=== PATIENT | female | born 1970 | race Caucasian/White ===

== ENCOUNTER → 2024-05-25 11:30 | Outpatient (REF) | payer OTHER, SELFPAY | LOC: WDC 11:30 | PROVIDERS: ATTENDING PHYSICIAN Obstetrics & Gynecology; FAMILY PHYSICIAN Family Medicine | DX: Z12.31 Encounter for screening mammogram for malignant neoplasm of breast (principal) | CPT/HCPCS: 77063; 77067 ==

== ENCOUNTER 2024-08-22 07:35 | Emergency (ER) | payer OTHER, SELFPAY ==
[2024-08-22] VITALS (26 sets, daily range): BP systolic 108–168; BP diastolic 61–114; BMI 40.9
--- NOTE | 2024-08-22 07:53 | ED.GENMED ---
History of Present Illness
<Zee Chaparro, NEW PATIENT ESCORT - Last Filed: 08/22/24 09:41>
General
Chief Complaint: Heart Rate Problem
Source: patient
Exam Limitations: none
Time Seen by Provider: 08/22/24 07:53
Nursing documentation reviewed up to this point in time: agreed with
History of Present Illness
History of Present Illness:
53-year-old female with history of atrial fibrillation 3 years ago, no longer on Eliquis, takes Baby asa daily, Losartan and Amlodipine 5 mg. Went to bed 11 p.m. feeling fine, woke at 6:30 this a.m. feeling palpitations. Denies chest pain, SOB.
Past History
<Zee Chaparro, NEW PATIENT ESCORT - Last Filed: 08/22/24 09:41>
Past History
ED Past Medical History: Arrthythmia (afib), HTN and Hypercholesterolemia
ED Past Surgical History: None
Social History
Tobacco: Non-smoker
Alcohol: Occasional
Personal:
Living: with family
Review of Systems
<Zee Chaparro, NEW PATIENT ESCORT - Last Filed: 08/22/24 09:41>
Review of Systems
Allergies reviewed?: Yes
All Other Systems: ROS reviewed and negative except as documented in HPI and ROS
Constitutional: Denies fever or fatigue
Respiratory: Denies trouble breathing
Cardiac: Reports palpitations; Denies chest pain or diaphoresis
ABD/GI: Reports abdominal pain, nausea and vomiting
Skin: Reports no symptoms
Neurological: Reports no symptoms
Phy Exam
<Zee Chaparro, NEW PATIENT ESCORT - Last Filed: 08/22/24 09:41>
Physical Exam
Physical Exam:
GENERAL: No acute distress. A&Ox3.
CONSTITUTIONAL: Afebrile.
EYES: clear, conjunctivae normal
ENMT: moist mucus membranes
RESPIRATORY: Regular respirations, nonlabored, lungs clear.
CARDIOVASCULAR: Irregular rhythm, rate 120's-160. No murmurs, no rubs.
GI: Soft, nontender, normal BS
MUSCULOSKELETAL: Moves with ease. Well perfused.
SKIN: Warm, dry, pink
PSYCH: Normal mood and affect. Well kept, interactive and appropriate
NEUROLOGIC: Awake, alert and oriented. No focal neurological deficits
Course
<Zee Chaparro, NEW PATIENT ESCORT - Last Filed: 08/22/24 09:41>
Orders/Labs/Results
Orders:
Orders
08/22/24 07:35
Electrocardiogram (*1) Urgent
Reason for Study: Atrial Fibrillation
08/22/24 07:36
EKG- Treatment ONCE
08/22/24 08:12
Complete Blood Count/With Diff Urgent
Comprehensive Metabolic Panel Urgent
Troponin I Urgent
08/22/24 08:22
Diltiazem 125 mg/125 ml Nss [Cardizem] 125 mg in 125 ml IV NOW
Initial dose in mg/hr, then titrate:: 5
Titrate to keep:: Heart rate 80-100 bpm
Titrate by mg/hr:: 5 mg/hr
Frequency of titrations (minutes):: 15
Maximum dose in mg/hr:: 15
Diltiazem HCl [Cardizem] 10 mg IV NOW STA
08/22/24 08:42
Ipratropium/Albuterol Sulfate [Duoneb] 3 ml INH R NOW STA
08/22/24 09:42
Propofol [Diprivan] 20 ml .ROUTE .STK-MED
08/22/24 10:12
EKG [Electrocardiogram (*1)] Urgent
Reason for Study: Other
Other Reason for Exam: s/p cardioversion
EKG- Treatment ONCE
Abnormal Lab Results
08/22/24
08:12
MCH 31.1 H pg
(27.0-31.0)
Absolute Monos (auto) 0.7 H 10^3/uL
(0.1-0.6)
Glucose 115 H mg/dl
(70-99)
ALT 38 H U/L
(0-35)
08/22/24 08:12
08/22/24 08:12
Vital Signs
Initial and Last Documented VS:
Initial Vital Signs
Temp Pulse Resp BP Pulse Ox
36.9 C 141 18 168/114 99
08/22/24 07:43 08/22/24 07:43 08/22/24 07:43 08/22/24 07:43 08/22/24 07:43
Last Documented Vital Signs
Temp Pulse Resp BP Pulse Ox
36.9 C 78 12 112/74 99
08/22/24 10:45 08/22/24 12:00 08/22/24 12:00 08/22/24 12:00 08/22/24 12:00
<Flo Eagle, DO - Last Filed: 08/22/24 12:41>
Orders/Labs/Results
Orders:
Orders
08/22/24 07:35
Electrocardiogram (*1) Urgent
Reason for Study: Atrial Fibrillation
08/22/24 07:36
EKG- Treatment ONCE
08/22/24 08:12
Complete Blood Count/With Diff Urgent
Comprehensive Metabolic Panel Urgent
Troponin I Urgent
08/22/24 08:22
Diltiazem 125 mg/125 ml Nss [Cardizem] 125 mg in 125 ml IV NOW
Initial dose in mg/hr, then titrate:: 5
Titrate to keep:: Heart rate 80-100 bpm
Titrate by mg/hr:: 5 mg/hr
Frequency of titrations (minutes):: 15
Maximum dose in mg/hr:: 15
Diltiazem HCl [Cardizem] 10 mg IV NOW STA
08/22/24 08:42
Ipratropium/Albuterol Sulfate [Duoneb] 3 ml INH R NOW STA
08/22/24 09:42
Propofol [Diprivan] 20 ml .ROUTE .STK-MED
08/22/24 10:12
EKG [Electrocardiogram (*1)] Urgent
Reason for Study: Other
Other Reason for Exam: s/p cardioversion
EKG- Treatment ONCE
Abnormal Lab Results
08/22/24
08:12
MCH 31.1 H pg
(27.0-31.0)
Absolute Monos (auto) 0.7 H 10^3/uL
(0.1-0.6)
Glucose 115 H mg/dl
(70-99)
ALT 38 H U/L
(0-35)
08/22/24 08:12
08/22/24 08:12
Vital Signs
Initial and Last Documented VS:
Initial Vital Signs
Temp Pulse Resp BP Pulse Ox
36.9 C 141 18 168/114 99
08/22/24 07:43 08/22/24 07:43 08/22/24 07:43 08/22/24 07:43 08/22/24 07:43
Last Documented Vital Signs
Temp Pulse Resp BP Pulse Ox
36.9 C 78 12 112/74 99
08/22/24 10:45 08/22/24 12:00 08/22/24 12:00 08/22/24 12:00 08/22/24 12:00
Procedures
<Flo Eagle, DO - Last Filed: 08/22/24 12:41>
Cardioversion
Indication:: Afib
Performed by:: [place], Dr. Eagle
Synchronized?: Yes
Energy Used: 200 joules
Number of attempts: 1
Successful?: Yes
Complications: None
ASA Risk Score: Class II
Any reaction or bad outcome to prior sedation/anesthesia?: No history of a reaction
Sedation level to be attained: moderate
Chart and allergies reviewed: Yes
Patient reassessed prior to sedation: Yes
Time out completed at (validating right patient & procedure): 10:01
History of difficult intubation: No
Airway free of obstruction: Yes
Patient has a gag reflex: Yes
Patient is able to open mouth: Yes
Patient has no dentures: Yes
Patient has no loose teeth: Yes
Medication administered by Provider during Moderate Sedation: IV Propofol (mg)
Total dose administered: 100
Time drug administered: 10:01
Start Time: 10:01
Stop Time: 10:12
<Zee Chaparro, NEW PATIENT ESCORT - Last Filed: 08/22/24 09:41>
MDM/Problems Addressed
MDM/Problems Addressed:
53-year-old female with history of atrial fibrillation 3 years ago, no longer on Eliquis, takes Baby asa daily, Losartan and Amlodipine 5 mg. Went to bed 11 p.m. feeling fine, woke at 6:30 this a.m. feeling palpitations. Denies chest pain, SOB.
Afebrile, NAD HR 120'2-160's on monitor
EKG: Afib w RVR
Dr. Eagle in to evaluate
Cardizem and drip started
Consulted Route Process Administrator Dr. Eaton who recommends cardioversion
CBC unremarkable
CMP unremarkable
Troponin WNL
9:40 a.m.
On Cardizem drip HR 120's-130's afib will cardiovert
Dr. Eagle will assume care from this point.
<Zee Chaparro, NEW PATIENT ESCORT - Last Filed: 08/22/24 09:41>
*EKG
EKG Intrepretation Date: 08/22/24
Interpretation: abnormal
Heart Rate: 142
Rate: tachycardiac
Rhythm: a-fib
[place]: normal axis
QRS Pattern: normal QRS
Ischemia: no ischemia
<Flo Eagle DO - Last Filed: 08/22/24 12:41>
*Critical Care Note
Total Time (30-74mins, 75-104mins- exclusive of procedures): 40min
comment:
The patient had heart rates in the 150s upon arrival. She was emergently placed on Cardizem bolus and drip. There was only minimal improvement of heart rate. Her vital signs were continuously monitored. Decision was later made to electrically
cardiovert.
<Flo Eagle DO - Last Filed: 08/22/24 12:41>
Update Note
Update Note:
Called [phone] for prior auth - accepted
ED Attending Note
<Zee Chaparro, NEW PATIENT ESCORT - Last Filed: 08/22/24 09:41>
-
Portions of this chart may have been created with voice recognition software.� Occasional wrong word or��sound alike� substitutions may have occurred due to the inherent limitations of voice recognition software.
<Flo Eagle DO - Last Filed: 08/22/24 12:41>
ED Attending Note
Patient seen and examined by attending physician: Yes
I performed the substantive portion of visit, reviewed & personally made and approve the management plan that is documented in note by myself or OPAL.: Yes
ED Attending Note:
I evaluated the patient at bedside. The patient had abrupt onset palpitations this morning. She has not had palpitations like this over the last few days. She had a similar episode a few years ago and was cardioverted through the Emergency
Department and had briefly been on Eliquis. She is no longer on Eliquis.
Discharge Plan
Departure
Patient Disposition: Home (Routine Discharge)
Date of Disposition: 08/22/24
Time of Disposition: 10:17
Patient with high blood pressure during this ER visit?: Yes
Discharge Problem:
Atrial fibrillation with rapid ventricular response
Instructions: Atrial Fibrillation (DC)
Prescriptions:
New
Eliquis 5 mg tablet
5 mg PO BID Qty: 60 0RF
No Action
apixaban [Eliquis] 5 MG tablet
5 mg PO BID Qty: 30 0RF
Referrals:
Jarvis Fitzpatrick MD [Family Provider] -
Activity Restrictions/Additional Instructions:
I notified Dr. Eaton, Dr. Roberts's partner. Please follow-up with your office. She recommends that we just have you resume the Eliquis. I sent a prescription to your pharmacy for this. Return here if worse or other concerns. Do not drive
today or do any other dangerous activities or make any important decisions as you did receive propofol IV.
Interventions
Interventions:
*Risk Screen - Suicide Last Done: 08/22/24 07:43
*General Assessment Last Done: 08/22/24 07:43
*Neglect/Abuse Screening Last Done: 08/22/24 07:43
ED- Fall Risk Assessment Last Done: 08/22/24 07:58
*ED COVID-19 Vaccine History Last Done: 08/22/24 07:58
ED- Cardiac Assessment Last Done: 08/22/24 07:58
ED- Pulmonary Assessment Last Done: 08/22/24 07:58
Discharge Date and Time
Print Language: GERMAN
[2024-08-22 08:23] LABS: % Basophils 1.2 % (0-2); % Eosinophils 2.6 % (0-6); % Immature Granulocytes 0.4 % (0-0.5); % Lymphocytes 34.6 % (20.5-51.1); % Monocytes 8.8 % (1.7-9.3); % Neutrophils 52.4 % (42.2-75.2); Absolute Basophils 0.1 10^3/uL (0-0.2); Absolute Eosinophils 0.2 10^3/uL (0-0.7); Absolute Lymphocytes 2.6 10^3/uL (1.2-3.4); Absolute Monocytes 0.7 10^3/uL (0.1-0.6); Hematocrit 46.2 % (37.0-47.0); Hemoglobin 15.7 g/dL (12.0-16.0); Mean Corpuscular Hgb 31.1 pg (27.0-31.0); Mean Corpuscular Volume 91.5 fL (81.0-99.0); Mean Platelet Volume 9.8 fL (7.4-10.4); Nucleated Red Blood Cells % 0 %; Platelet Count 310 10^3/uL (130-400); Red Blood Cell Count 5.05 10^6/uL (4.20-5.40); Red Cell Dist. Width 13.4 % (11.5-14.5); White Blood Cell Count 7.6 10^3/uL (4.8-10.8)
[2024-08-22] MEDS: CARDIZEM 10 MG IV (08:31)
[2024-08-22] MEDS: CARDIZEM 125 IV (08:31)
[2024-08-22 08:33] LABS: ALT (SGPT) 38 U/L (0-35); AST (SGOT) 30 U/L (14-36); Albumin 4.5 g/dl (3.5-5.0); Alkaline Phosphatase 80 U/L (38-126); Blood Urea Nitrogen 13 mg/dl (7-17); Calcium 9.4 mg/dl (8.4-10.2); Carbon Dioxide 26 mmol/L (22-30); Chloride 105 mmol/L (98-107); Estimated Creatinine Clearance 91 ml/min; Glucose 115 mg/dl (70-99); Sodium 140 mmol/L (135-145); Total Bilirubin 0.6 mg/dl (0.2-1.3); Total Protein 7.2 g/dl (6.3-8.2); eGFR > 60.00
[2024-08-22 08:44] LABS: Troponin I < 0.012 ng/ml
[2024-08-22 09:15] LABS: Potassium 4.2 mmol/L (3.5-5.1)
--- NOTE | 2024-08-22 10:10 | EDRN ---
Patient received total of Diprivan 100mg IV by . Patient cardioverted with 200 J into sinus tach.
== END 2024-08-22 12:50 | disposition home or self-care (01) ==
LOC: EMR 07:35
PROVIDERS: Registered Nurse; EMERGENCY PHYSICIAN Emergency Medicine; FAMILY PHYSICIAN Family Medicine
DX: I48.91 Unspecified atrial fibrillation (principal); I10 Essential (primary) hypertension; E78.00 Pure hypercholesterolemia, unspecified; Z79.82 Long term (current) use of aspirin; Z79.899 Other long term (current) drug therapy
CPT/HCPCS: 99291; 92960; 96365; 99152; 80053; 84484; 85025; 93005

== ENCOUNTER 2025-01-29 06:03 | Day surgery (SDC) | payer OTHER, SELFPAY ==
[2025-01-16 08:38] VITALS: BMI 40.5
[2025-01-16 09:12] LABS: % Basophils 1.2 % (0-2); % Eosinophils 3.8 % (0-6); % Immature Granulocytes 0.3 % (0-0.5); % Lymphocytes 30.7 % (20.5-51.1); % Monocytes 9.6 % (1.7-9.3); % Neutrophils 54.4 % (42.2-75.2); Absolute Basophils 0.1 10^3/uL (0-0.2); Absolute Eosinophils 0.3 10^3/uL (0-0.7); Absolute Monocytes 0.6 10^3/uL (0.1-0.6); Absolute Neutrophils 3.6 10^3/uL (1.4-6.5); Hematocrit 44.5 % (37.0-47.0); Hemoglobin 14.9 g/dL (12.0-16.0); Mean Corp Hgb Conc. 33.5 g/dL (33.0-37.0); Mean Corpuscular Hgb 31.2 pg (27.0-31.0); Mean Corpuscular Volume 93.1 fL (81.0-99.0); Mean Platelet Volume 10.2 fL (7.4-10.4); Nucleated Red Blood Cells % 0 %; Platelet Count 280 10^3/uL (130-400); Red Blood Cell Count 4.78 10^6/uL (4.20-5.40); Red Cell Dist. Width 13.5 % (11.5-14.5); White Blood Cell Count 6.6 10^3/uL (4.8-10.8)
[2025-01-16 09:32] LABS: ALT (SGPT) 62 U/L (0-35); AST (SGOT) 35 U/L (14-36); Albumin 4.5 g/dl (3.5-5.0); Alkaline Phosphatase 72 U/L (38-126); Blood Urea Nitrogen 15 mg/dl (7-17); Calcium 10.3 mg/dl (8.4-10.2); Carbon Dioxide 27 mmol/L (22-30); Chloride 109 mmol/L (98-107); Estimated Creatinine Clearance 80 ml/min; Glucose 100 mg/dl (70-99); Potassium 5.4 mmol/L (3.5-5.1); Sodium 141 mmol/L (135-145); Total Bilirubin 0.5 mg/dl (0.2-1.3); Total Protein 7.2 g/dl (6.3-8.2); eGFR > 60.00
[2025-01-29] VITALS (22 sets, daily range): BP systolic 107–124; BP diastolic 62–83; BMI 40.6
[2025-01-29 08:51] LABS: ACT-LR - POC 311 Seconds (116-155)
[2025-01-29 09:09] LABS: ACT-LR - POC 353 Seconds (116-155)
--- NOTE | 2025-01-29 09:40 | ITS.CL.ABL ---
Control Clerk Auditing - Ablation
Ablation
Procedure Report:
AFIB ablation:
Ms. Bo is a very pleasant 54 yr old woman with symptomatic paroxysmal AF, is recommended for atrial fibrillation ablation.
Date of the Procedure:
01/29/2025
Indications:
Paroxysmal atrial fibrillation
Pre-Operative Diagnosis:
Paroxysmal atrial fibrillation
Post-Operative Diagnosis:
Paroxysmal atrial fibrillation
Procedure Performed:
Atrial fibrillation ablation with Pulsed-Field approach for pulmonary vein isolation
Performing Physician:
Torsten Ovalle MD
Assistants:
EP staff
Anesthesia:
See anesthesia records
Detailed Description of the Procedure:
Written informed consent was obtained from the patient after a full explanation of the risks and benefits of the procedure including the risks of sedation and anesthesia.
The patient was brought to the electrophysiology laboratory in stable condition in fasting state. Continuous electrocardiographic and hemodynamic monitoring was initiated.
The initial rhythm was sinus.
The procedure site was meticulously prepared with surgical scrub and allowed to dry with no pooling. Sterile draping was applied to cover the procedure site. The image intensifier was draped with sterile bag and positioned over the patient. After
infusion of local anesthetic, vascular access was obtained under ultrasound guidance and sheaths were placed over guide wire as detailed below.
Sheath and Catheter Placement:
The following catheters / sheaths were placed
Sheaths:
��������� 17Fr steerable sheath ([employer]omb[employer]adrive�, [employer]) in right femoral
��������� 9Fr in right femoral vein
Catheters:
��������� GELACIO HD Grid mapping catheter � at locations of RA, LA
��������� Farawave� PFA catheter
��������� ICE catheter � AcuNav - at locations of RA, SVC, and RV.
Intracardiac ECHO:
An 8-Filipino AcuNav intracardiac ECHO (ICE) probe was advanced through the 9-Filipino sheath in the right femoral vein into the right atrium under fluoroscopic and ICE ultrasound image guidance and a baseline ECHO study was performed. The left atrial
size was normal. There was moderate tricuspid regurgitation. The aortic valve was grossly normal. There was normal left ventricular systolic functions. There is no pericardial effusion. All the four veins were identified and has flow identified.
There was good flow noted in the MIC.
During the procedure, ICE was used for monitoring of complications, guidance of trans-septal puncture, monitor the catheter position and tracking ablation lesions. No change in the pericardial space noted throughout the procedure.
Trans-septal Puncture:
Heparin was initiated and infused to maintain appropriate ACT. A pigtail guidewire was advanced through the 8-Filipino sheath in the right femoral vein into the superior vena cava under fluoroscopic and ICE guidance. The 9-Filipino sheath was exchanged
for a Faradrive sheath which was advanced into the superior vena cava. A transseptal RF pigtail via Faradrive connect system was utilized to perform the trans-septal puncture. The apparatus was withdrawn until it was in contact with the fossa
ovalis. The position was adjusted based on fluoroscopy and ultrasound images from ICE. Under fluoroscopic, hemodynamic and ICE ultrasound guidance, left atrium was cannulated by applying RF energy. Once atrial septum was cannulated, the pigtail wire
was advanced through the needle into the left atrium. The guide wire was advanced into the left superior pulmonary vein. Both the sheath and the dilator was advanced into the left atrium. The dilator with the needle was withdrawn. Blood was
aspirated from the Faradrive sheath and arterial blood confirmed. The sheath was flushed. Saline injection noted into the left atrium on ICE. The mapping catheter was advanced in the sheath into the left pulmonary vein. Left atrial pressure was
measured.
3D Electroanatomic Mapping:
Using the HD Grid catheter advanced through sheath into the left atrium, an electroanatomic map (EAM) of the left atrium was created using [employer] GELACIO mapping system. The map was used for localization of catheter position and tacking of ablation
lesions.
The EAM of the left atrium showed 6 pulmonary veins (3 left, 3 right) with all 4 veins electrically connected to the body the LA. It showed normal voltage on the posterior and anterior wall of the LA. The LA was mildly dilated in size.
While mapping the LA, the catheter induced AF noted from the right sided veins.
The LA was mapped again in AF.
Following the EAM, preparation were made for ablation.
Ablation:
Ablation # 1: Pulmonary vein Isolation:
Glycopyrrolate 0.2 mg was given prior to the placement of ablation.
Using [employer] pulsed wave ablation system, pulmonary vein isolation was achieved. First the ablation catheter was placed in the LSPV and ostial ablation lesions were performed in a counter clock casas approach all around the PV ostium
circumferentially using the Farapulse catheter in �[place]� formation. Then the catheter was placed on the antral location (in Disc/flower formation) and multiple ablation lesions were placed circumferentially on the antrum of the vein.
In the similar fashion, the LIPV were isolated.
Then the catheter was moved to right sided veins. The ostial and antral ablations were placed as noted above.
Cardioversion:
Due to the persistence of atrial fibrillation during the case, the decision was made to proceed with a cardioversion followed by the remainder of the ablation as detailed below. Therefore, a 200J shock was delivered to the chest via Zoll patches
placed with jew of sinus rhythm. The patient remained hemodynamically stable throughout.
EPS and Confirmation of the PVI and bidirectional block:
Following achievement of entrance block at the pulmonary veins, pacing from the HD catheter in each of the four veins at 10 milliamps for 2 milliseconds showed entrance and exit block. All PVI were rechecked at the end of the case and remained
isolated. Entrance and exit block were demonstrated in all veins.
Post ablation Electroanatomic mapping:
Once ablation was completed, the EAM of the LA was done again in sinus rhythm with excellent demarcation of LA myocardium and isolated antral tissue. There was no significant scarring noted in the LA.
The MIC had healthy signals and was not isolated.
Procedure End
ICE study was done again that showed no epicardial accumulation. No complications noted.
Following the completion of the EP study, catheters were removed. Protamine 40 mg was given at the end of the procedure and ACT was checked repeatedly. The sheaths were removed and hemostasis achieved with �Figure of 8� and manual compression after
acceptable ACT is achieved.
Left atrial Pressure:
Pre-ablation: Mean LA pressure was 11mmHg
Post-ablation: Mean LA pressure was 12mmHg
Post-ablation: Mean RA pressure was 6mmHg
Estimated Blood loss:
<10 cc
Specimens Removed:
None.
Implants / Devices:
None
Urine output:
None
Packs / Drains/ Tubes:
None
Instrument / Sponge Count Correct:
Yes
Complications of the Procedure:
None
Condition of Patient at Time of Transfer:
Hemodynamically stable with no neurological or vascular compromise.
Summary:
Successful atrial fibrillation ablation with Pulsed Field approach for pulmonary vein isolation.
Figures from the Procedure:
Figure 1: The electroanatomic mapping (EAM) of the left atrium with bipolar voltage (purple indicates normal electrical activity with moffett as no myocardial muscle electric activity indicating a line of block or scar.
Sinus -preablation
AFib - Pre-ablaiton
Sinus post ablation
--- NOTE | 2025-01-29 16:19 | W.PN.UPDATE ---
Update Note
Progress Note Update
Pt seen post PFA. Right groin site without ht/bleeding, oob ambulating, urinating without difficulty. Post EKG NSR 72, no acute changes. Resume eliquis tonight at usual time. Followup at [facility] as scheduled. Home today if groin site/tele remain stable.
== END 2025-01-29 14:30 | disposition home or self-care (01) ==
LOC: CATH 06:03
PROVIDERS: ATTENDING PHYSICIAN Internal Medicine Cardiovascular Disease; FAMILY PHYSICIAN Family Medicine; OTHER PHYSICIAN Nurse Practitioner
DX: I48.0 Paroxysmal atrial fibrillation (principal); Z98.890 Other specified postprocedural states; I10 Essential (primary) hypertension; E78.5 Hyperlipidemia, unspecified; Z79.01 Long term (current) use of anticoagulants
CPT/HCPCS: C1732; C1894; C1892; C1759; 36415; 80053; 85025; 85347; 86850; 86900; 86901; 93005; 93656; C1733; C1766; C1769

== ENCOUNTER → 2025-06-04 08:12 | Outpatient (REF) | payer OTHER, SELFPAY | LOC: WDC 08:12 | PROVIDERS: ATTENDING PHYSICIAN Obstetrics & Gynecology; FAMILY PHYSICIAN Family Medicine | DX: Z12.31 Encounter for screening mammogram for malignant neoplasm of breast (principal) | CPT/HCPCS: 77063; 77067 ==